=== PATIENT | male | born 1955 | race Caucasian/White ===

== ENCOUNTER 2023-02-04 22:47 | Observation (INO) ==
--- NOTE | 2023-02-04 23:45 | Emergency Department Note ---
Impression & Plan Acute alteration in mental status Admit to the [facility] ED Provider Note NAME: TERRENCE SANTANA AGE: 67 SEX: M ARRIVES VIA: Walk-In INFORMANT: Patient and caregiver ED PROVIDER(S): Eileen Chawla DO CHIEF COMPLAINT: Altered mental status PLAN: Disposition: Admit to the [facility] Condition: Fair MEDICAL DECISION MAKING: This is a 67-year-old male patient who presents to the emergency department with increased confusion and what the caregiver described as acting "fidgety." Patient had been seen at [facility] for similar presentation admitted there just 2 days ago. He was discharged back to his correction and told to stop taking his trazodone and quetiapine. Caregivers were concerned because his altered mental status seems to have worsened and now he is more restless and has increased tongue protrusion. Laboratory studies here reveal anemia, decreased white blood cell count and trace ketones. Patient was bolused with IV normal saline solution here in the ER for what appeared to be some clinical dehydration. He was also given a dose of IV Ativan which did not seem to help with his restlessness. [facility] and they will evaluate for his altered mental status and admission. Triage Nursing notes reviewed and agree with them. Additional history obtained from rehabilitation services aide who is at the bedside External medical records were reviewed from the correction Vital Signs: reviewed and unremarkable Differential diagnosis: Medication side effects, cognitive impairment, neuropsych results of TBI, intellectual disability ER treatment provided: Cardiac monitoring Twelve-lead EKG IV normal saline bolus IV Ativan Diagnostics interpreted by me: ECG: Normal sinus rhythm at a rate of [address] segment elevation or signs of ischemia. There is no ectopy. QTc is 383 ms. Cardiac Monitoring: Normal sinus rhythm at a rate of 69. Laboratory studies: See below HPI: 67/M arrives for evaluation of altered mental status. Most of the history is obtained from the rehabilitation services aide who is at the bedside. She states that the patient appears to have a bit of an altered mental status over the past week. She describes him as increasingly"fidgety." She also describes increased confusion. They thought he may have a urinary tract infection and obtained urine specimen last week but this was negative for UTI. The patient was seen at [facility] 2 days ago and admitted overnight. Upon discharge from there, they did discontinued his trazodone and quetiapine. PAST MEDICAL HISTORY:Intellectual disability; traumatic brain injury; neuroleptic malignant syndrome; GERD; hypertension; asthma; cataracts; constipation SOCIAL HISTORY:Patient lives in a correction HOME MEDICATIONS:See Below ALLERGIES:See Below VITALS:See Below PHYSICAL EXAMINATION: HEENT: Head - normocephalic and atraumatic. Pupils are equal, round, and reactive to light. Extraocular eye muscles are intact, and sclera are anicteric. Nose - moist nasal mucosa without discharge. Mouth-dry buccal mucosa. Oropharynx is nonerythematous and there is no tonsillar exudate or edema noted. Neck: Supple; no nuchal rigidity or cervical lymphadenopathy Heart: Regular rate and rhythm. There is a normal S1 and S2 with no murmurs, clicks, or gallops appreciated. Lungs: Clear to auscultation bilaterally with no wheezes, rales, or rhonchi. Abdomen: Soft, completely nontender, nondistended, with good bowel sounds. There are no palpable pulsatile masses or hepatosplenomegaly. There is no guarding, rigidity, or rebound noted. Extremities: No evidence of cyanosis, clubbing, or edema. There are easily palpable peripheral pulses. Skin: warm and dry with good turgor and no rashes. Neuro: The patient appears restless and has lipsmacking and tongue protrusion. He is moving all 4 extremities. Normal muscle strength in all 4 extremities. He has equal pedal push and pull and equal environmental health manager strengths. He has normal finger-nose. ED COURSE: Times/Reassessments: 2300: Patient was evaluated in room A-9. A complete history and physical was performed. An order was placed for continuous cardiac monitoring. Patient was in a normal sinus rhythm at a rate of 69. A twelve- lead EKG was obtained as described above. Bolused with a liter of normal saline. He was given a dose of IV Ativan. 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, with other behavioral or psychological disturbance Psychosis Social History Smoking Status: Unknown if ever smoked Second Hand Exposure: No; Do You Dip or Chew Tobacco: No; Tobacco Cessation Education Requested by Patient: No Hx Alcohol Use: No Hx Substance Use: No Preferred Language: Slovenian Communication Ability: Impaired Disc Pad Grinder Required: No Beliefs That Will Affect Care: None Current Living Situation: Residential and Personal Care Facility Other Information That Helps Us Care for You: No Feels Safe at Home: Yes Safety Concerns: Feels Safe At This Time Assistive Devices: Glasses Allergies Allergies Allergy/AdvReac Type Severity Reaction Status Date / Time No Known Allergies Allergy Unverified 02/04/23 23:56 Home Meds Home Medications Medication Instructions Recorded Confirmed aspirin 81 mg chewable tablet 81 mg PO DAILY 02/04/23 02/05/23 atorvastatin 40 mg tablet 40 mg PO DAILY 02/04/23 02/05/23 carvedilol 6.25 mg tablet 6.25 mg PO BID 02/04/23 02/05/23 famotidine 20 mg tablet 40 mg DAILY 02/04/23 02/05/23 methylcellulose (laxative) 500 mg 500 mg PO BID 02/04/23 02/05/23 tablet (Citrucel) ascorbic acid (vitamin C) 500 mg 500 mg PO DAILY 02/05/23 02/05/23 chewable tablet (Vitamin C) ketoconazole 2 % shampoo 2 applic topical 2XWK 02/05/23 02/05/23 lamotrigine 200 mg tablet 200 mg BID 02/05/23 02/05/23 levothyroxine 50 mcg tablet 50 mcg DAILY 02/05/23 02/05/23 lorazepam 0.5 mg tablet 0.5 mg DAILY 02/05/23 02/05/23 losartan 100 mg tablet 100 mg DAILY 02/05/23 02/05/23 quetiapine 100 mg tablet 100 mg HS 02/05/23 02/05/23 quetiapine 50 mg tablet 50 mg DAILY 02/05/23 02/05/23 sertraline 100 mg tablet 200 mg DAILY 02/05/23 02/05/23 terazosin 2 mg capsule 2 mg HS 02/05/23 02/05/23 trazodone 150 mg tablet 150 mg HS 02/05/23 02/05/23 Previous Rx's Medication Instructions Recorded melatonin 3 mg tablet 3 mg PO HS PRN sleep #30 tabs 02/06/23 Results & Data (ED) Vital Signs Vital Signs - 24 hr 02/04/23 22:49 02/04/23 23:04 02/04/23 23:00 Temperature 37.2 C 37.9 C H Temperature Source Temporal Artery Scan Oral Pulse Rate 77 70 Pulse Rate [Apical] 68 Pulse Rhythm [Apical] Pulse Strength [Apical] Respiratory Rate 16 22 Respiratory Effort / Characteristics Respiratory Depth Respiratory Pattern Blood Pressure 102/65 Blood Pressure [Left Arm] Blood Pressure Mean 77 Blood Pressure Mean [Left Arm] Blood Pressure Position [Left Arm] Pulse Oximetry 94 95 Oxygen Delivery Method Room Air Room Air Sepsis Recent Fever Within 48 Hours No Sepsis New/Unexplained Change in Mental Status N/A Sepsis Action Taken by Nursing No Action Required 02/04/23 23:24 02/04/23 23:30 02/05/23 00:00 Temperature Temperature Source Pulse Rate 61 60 Pulse Rate [Apical] Pulse Rhythm [Apical] Pulse Strength [Apical] Respiratory Rate 22 20 Respiratory Effort / Characteristics Respiratory Depth Respiratory Pattern Blood Pressure 136/62 127/68 Blood Pressure [Left Arm] Blood Pressure Mean 86 87 Blood Pressure Mean [Left Arm] Blood Pressure Position [Left Arm] Pulse Oximetry 95 96 Oxygen Delivery Method Room Air Room Air Room Air Sepsis Recent Fever Within 48 Hours Sepsis New/Unexplained Change in Mental Status Sepsis Action Taken by Nursing 02/05/23 00:15 02/05/23 01:21 02/05/23 00:30 Temperature 37.8 C H Temperature Source Axillary Pulse Rate 59 L 63 Pulse Rate [Apical] 70 Pulse Rhythm [Apical] Regular Pulse Strength [Apical] Normal Respiratory Rate 20 17 25 H Respiratory Effort / Characteristics Non-Labored Spontaneous Respiratory Depth Normal Respiratory Pattern Regular Blood Pressure 148/63 H 138/67 Blood Pressure [Left Arm] 163/92 H Blood Pressure Mean 91 90 Blood Pressure Mean [Left Arm] 115 Blood Pressure Position [Left Arm] Lying Pulse Oximetry 95 93 Oxygen Delivery Method Room Air Room Air Sepsis Recent Fever Within 48 Hours Sepsis New/Unexplained Change in Mental Status Sepsis Action Taken by Nursing 02/05/23 01:30 02/05/23 00:45 02/05/23 02:57 Temperature Temperature Source Pulse Rate 68 60 68 Pulse Rate [Apical] Pulse Rhythm [Apical] Pulse Strength [Apical] Respiratory Rate 21 20 Respiratory Effort / Characteristics Respiratory Depth Respiratory Pattern Blood Pressure 106/82 132/81 Blood Pressure [Left Arm] Blood Pressure Mean 90 98 Blood Pressure Mean [Left Arm] Blood Pressure Position [Left Arm] Pulse Oximetry 92 95 Oxygen Delivery Method Room Air Room Air Sepsis Recent Fever Within 48 Hours Sepsis New/Unexplained Change in Mental Status Sepsis Action Taken by Nursing 02/05/23 02:30 02/05/23 02:45 02/05/23 03:00 Temperature Temperature Source Pulse Rate 68 64 67 Pulse Rate [Apical] Pulse Rhythm [Apical] Pulse Strength [Apical] Respiratory Rate Respiratory Effort / Characteristics Respiratory Depth Respiratory Pattern Blood Pressure 134/75 130/102 H 137/70 Blood Pressure [Left Arm] Blood Pressure Mean 94 111 92 Blood Pressure Mean [Left Arm] Blood Pressure Position [Left Arm] Pulse Oximetry 95 94 95 Oxygen Delivery Method Room Air Room Air Room Air Sepsis Recent Fever Within 48 Hours Sepsis New/Unexplained Change in Mental Status Sepsis Action Taken by Nursing 02/05/23 03:15 Temperature Temperature Source Pulse Rate 69 Pulse Rate [Apical] Pulse Rhythm [Apical] Pulse Strength [Apical] Respiratory Rate Respiratory Effort / Characteristics Respiratory Depth Respiratory Pattern Blood Pressure 124/74 Blood Pressure [Left Arm] Blood Pressure Mean 90 Blood Pressure Mean [Left Arm] Blood Pressure Position [Left Arm] Pulse Oximetry 94 Oxygen Delivery Method Room Air Sepsis Recent Fever Within 48 Hours Sepsis New/Unexplained Change in Mental Status Sepsis Action Taken by Nursing Laboratory Data 02/04/23 23:10 02/04/23 23:10 Lab Results 02/04/23 02/04/23 02/04/23 Range/Units 23:10 23:10 23:10 WBC 3.98 L (4.8-10.8) K/ul RBC 4.38 L (4.70-6.10) M/uL Hgb 12.2 L (14.0-18.0) g/dl Hct 36.5 L (42.0-52.0) % MCV 83.3 (80.0-100.0) fL MCH 27.9 (25.0-34.0) pg MCHC 33.4 (32.0-36.0) g/dL RDW Std Deviation 43.8 (36.4-46.3) fL RDW Coeff of Zeyad 14.4 (11.5-14.5) % Plt Count 221 (130-400) K/uL MPV 10.0 (9.4-12.4) fL Immature Gran % (Auto) 0.0 % Neut % (Auto) 64.0 % Lymph % (Auto) 18.1 % [place] % (Auto) 13.8 % Eos % (Auto) 3.8 % Baso % (Auto) 0.3 % Neut # (Auto) 2.55 (1.40-6.50) K/uL Lymph # (Auto) 0.72 L (1.20-3.40) K/uL [place] # (Auto) 0.55 (0.11-0.59) K/uL Eos # (Auto) 0.15 (0.00-0.50) K/uL Baso # (Auto) 0.01 (0.00-0.20) K/uL Immature Gran # (Auto) 0.00 L (0.01-0.20) K/uL Sodium 137 (136-145) mmol/L Potassium 3.9 (3.5-5.1) mmol/L Chloride 107 (98-107) mmol/L Carbon Dioxide 26 (21-32) mmol/L Anion Gap 4 (3-11) BUN 22 (6-23) mg/dl Creatinine 1.07 (0.6-1.4) mg/dl Est Cr Clr Drug Dosing Not Reportable Est GFR ( Amer) 84.0 ml/min Est GFR (Non-Af Amer) 72.5 ml/min BUN/Creatinine Ratio 20.6 H (10-20) Glucose 94 (70-99(Fasting)) mg/dl Lactate (0.4-2.0) mmol/L Calcium 9.1 (8.6-10.3) mg/dl Magnesium 1.8 (1.7-2.4) mg/dl Total Bilirubin 0.4 (0.2-1.0) mg/dl Direct Bilirubin 0.1 (0-0.2) mg/dl AST 31 (13-39) U/L ALT 18 (7-52) U/L Alkaline Phosphatase 46 (34-104) U/L Troponin I High Sens 8.1 (0-20) pg/ml Total Protein 6.6 (6.0-8.3) gm/dl Albumin 3.8 (3.4-5.0) gm/dl Procalcitonin < 0.05 (0-0.5) ng/ml TSH (0.300-4.500) uIu/ml Urine Color Urine Appearance (Clear) Urine pH (4.5-7.5) Ur Specific [place] (1.000-1.030) Urine Protein (Negative) Urine Glucose (UA) (Negative) Urine Ketones (Negative) Urine Blood (Negative) Urine Nitrite (Negative) Urine Bilirubin (Negative) Urine Urobilinogen (Negative) Ur Leukocyte Esterase (Negative) Ethyl Alcohol mg/dL (<10.0) mg/dl Lyme Disease IgG Ab (Negative) Lyme Disease IgM Ab (Negative) 02/04/23 02/04/23 02/04/23 Range/Units 23:10 23:10 23:10 WBC (4.8-10.8) K/ul RBC (4.70-6.10) M/uL Hgb (14.0-18.0) g/dl Hct (42.0-52.0) % MCV (80.0-100.0) fL MCH (25.0-34.0) pg MCHC (32.0-36.0) g/dL RDW Std Deviation (36.4-46.3) fL RDW Coeff of Zeyad (11.5-14.5) % Plt Count (130-400) K/uL MPV (9.4-12.4) fL Immature Gran % (Auto) % Neut % (Auto) % Lymph % (Auto) % [place] % (Auto) % Eos % (Auto) % Baso % (Auto) % Neut # (Auto) (1.40-6.50) K/uL Lymph # (Auto) (1.20-3.40) K/uL [place] # (Auto) (0.11-0.59) K/uL Eos # (Auto) (0.00-0.50) K/uL Baso # (Auto) (0.00-0.20) K/uL Immature Gran # (Auto) (0.01-0.20) K/uL Sodium (136-145) mmol/L Potassium (3.5-5.1) mmol/L Chloride (98-107) mmol/L Carbon Dioxide (21-32) mmol/L Anion Gap (3-11) BUN (6-23) mg/dl Creatinine (0.6-1.4) mg/dl Est Cr Clr Drug Dosing Est GFR ( Amer) ml/min Est GFR (Non-Af Amer) ml/min BUN/Creatinine Ratio (10-20) Glucose (70-99(Fasting)) mg/dl Lactate (0.4-2.0) mmol/L Calcium (8.6-10.3) mg/dl Magnesium (1.7-2.4) mg/dl Total Bilirubin (0.2-1.0) mg/dl Direct Bilirubin (0-0.2) mg/dl AST (13-39) U/L ALT (7-52) U/L Alkaline Phosphatase (34-104) U/L Troponin I High Sens (0-20) pg/ml Total Protein (6.0-8.3) gm/dl Albumin (3.4-5.0) gm/dl Procalcitonin (0-0.5) ng/ml TSH 4.266 (0.300-4.500) uIu/ml Urine Color Dark Yellow Urine Appearance Clear (Clear) Urine pH 5.5 (4.5-7.5) Ur Specific [place] 1.025 (1.000-1.030) Urine Protein Negative (Negative) Urine Glucose (UA) Negative (Negative) Urine Ketones Trace H (Negative) Urine Blood Negative (Negative) Urine Nitrite Negative (Negative) Urine Bilirubin Negative (Negative) Urine Urobilinogen Negative (Negative) Ur Leukocyte Esterase Negative (Negative) Ethyl Alcohol mg/dL (<10.0) mg/dl Lyme Disease IgG Ab Negative (Negative) Lyme Disease IgM Ab Negative (Negative) 02/04/23 02/04/23 Range/Units 23:47 23:47 WBC (4.8-10.8) K/ul RBC (4.70-6.10) M/uL Hgb (14.0-18.0) g/dl Hct (42.0-52.0) % MCV (80.0-100.0) fL MCH (25.0-34.0) pg MCHC (32.0-36.0) g/dL RDW Std Deviation (36.4-46.3) fL RDW Coeff of Zeyad (11.5-14.5) % Plt Count (130-400) K/uL MPV (9.4-12.4) fL Immature Gran % (Auto) % Neut % (Auto) % Lymph % (Auto) % [place] % (Auto) % Eos % (Auto) % Baso % (Auto) % Neut # (Auto) (1.40-6.50) K/uL Lymph # (Auto) (1.20-3.40) K/uL [place] # (Auto) (0.11-0.59) K/uL Eos # (Auto) (0.00-0.50) K/uL Baso # (Auto) (0.00-0.20) K/uL Immature Gran # (Auto) (0.01-0.20) K/uL Sodium (136-145) mmol/L Potassium (3.5-5.1) mmol/L Chloride (98-107) mmol/L Carbon Dioxide (21-32) mmol/L Anion Gap (3-11) BUN (6-23) mg/dl Creatinine (0.6-1.4) mg/dl Est Cr Clr Drug Dosing Est GFR ( Amer) ml/min Est GFR (Non-Af Amer) ml/min BUN/Creatinine Ratio (10-20) Glucose (70-99(Fasting)) mg/dl Lactate 0.8 (0.4-2.0) mmol/L Calcium (8.6-10.3) mg/dl Magnesium (1.7-2.4) mg/dl Total Bilirubin (0.2-1.0) mg/dl Direct Bilirubin (0-0.2) mg/dl AST (13-39) U/L ALT (7-52) U/L Alkaline Phosphatase (34-104) U/L Troponin I High Sens (0-20) pg/ml Total Protein (6.0-8.3) gm/dl Albumin (3.4-5.0) gm/dl Procalcitonin (0-0.5) ng/ml TSH (0.300-4.500) uIu/ml Urine Color Urine Appearance (Clear) Urine pH (4.5-7.5) Ur Specific [place] (1.000-1.030) Urine Protein (Negative) Urine Glucose (UA) (Negative) Urine Ketones (Negative) Urine Blood (Negative) Urine Nitrite (Negative) Urine Bilirubin (Negative) Urine Urobilinogen (Negative) Ur Leukocyte Esterase (Negative) Ethyl Alcohol mg/dL < 10.0 (<10.0) mg/dl Lyme Disease IgG Ab (Negative) Lyme Disease IgM Ab (Negative) Administered Medications Aspirin (Aspirin 81 Mg Ectab) 81 mg PO DAILY GIOVANNI Stop: 03/07/23 08:59 Last Admin: 02/06/23 09:58 Dose: 81 mg Documented By: Admin: 02/05/23 09:08 Dose: 81 mg Documented By: ES Atorvastatin Calcium (Atorvastatin 40 Mg Tab) 40 mg PO DAILY GIOVANNI Stop: 03/07/23 08:59 Last Admin: 02/06/23 09:58 Dose: 40 mg Documented By: Admin: 02/05/23 09:08 Dose: 40 mg Documented By: ES Carvedilol (Carvedilol 6.25 Mg Tab) 6.25 mg PO BID GIOVANNI Stop: 03/07/23 08:59 Last Admin: 02/06/23 10:01 Dose: Not Given Documented By: Admin: 02/05/23 20:09 Dose: Not Given Documented By: Admin: 02/05/23 09:09 Dose: 6.25 mg Documented By: ES Enoxaparin Sodium (Enoxaparin Inj 40 Mg/0.4 Ml Syr) 40 mg SQ QAM GIOVANNI Stop: 03/07/23 08:59 Last Admin: 02/06/23 10:01 Dose: 40 mg Documented By: Admin: 02/05/23 09:08 Dose: 40 mg Documented By: ES Famotidine (Famotidine 40 Mg Tablet) 40 mg PO DAILY GIOVANNI Stop: 03/07/23 08:59 Last Admin: 02/06/23 09:59 Dose: 40 mg Documented By: Admin: 02/05/23 09:09 Dose: 40 mg Documented By: ES Lamotrigine (Lamotrigine 100 Mg Tab) 200 mg PO BID GIOVANNI Stop: 03/07/23 08:59 Last Admin: 02/06/23 09:59 Dose: 200 mg Documented By: Admin: 02/05/23 20:15 Dose: 200 mg Documented By: Admin: 02/05/23 09:09 Dose: 200 mg Documented By: ES Levothyroxine Sodium (Levothyroxine Sodium 50 Mcg Tablet) 50 mcg PO DAILYBB GIOVANNI Stop: 03/07/23 06:29 Last Admin: 02/06/23 06:07 Dose: 50 mcg Documented By: Admin: 02/05/23 09:08 Dose: 50 mcg Documented By: JESSICA Lorazepam (Lorazepam 0.5 Mg Tab) 0.5 mg PO DAILY GIOVANNI Stop: 03/07/23 08:59 Last Admin: 02/06/23 09:58 Dose: 0.5 mg Documented By: Admin: 02/05/23 09:09 Dose: 0.5 mg Documented By: JESSICA Losartan Potassium (Losartan Potassium 50 Mg Tab) 100 mg PO DAILY GIOVANNI Stop: 03/07/23 08:59 Last Admin: 02/06/23 09:59 Dose: 100 mg Documented By: Admin: 02/05/23 09:09 Dose: 100 mg Documented By: JESSICA Miscellaneous (Citrucel~Order Awaiting Action) 1 each N/A QS GIVOANNI Stop: 03/07/23 07:59 Last Admin: 02/06/23 10:00 Dose: Not Given Documented By: Admin: 02/05/23 23:44 Dose: Not Given Documented By: Admin: 02/05/23 09:09 Dose: 1 each Documented By: Admin: 02/05/23 09:09 Dose: 1 each Documented By: JESSICA Terazosin HCl (Terazosin Hcl 1 Mg Cap) 2 mg PO HS GIOVANNI Stop: 03/07/23 20:59 Last Admin: 02/05/23 20:08 Dose: 2 mg Documented By: RENETTA Discontinued Medications Sodium Chloride (Nss) 500 mls @ 999 mls/hr IV .Q31M ONE Stop: 02/05/23 02:02 Last Infusion: 02/05/23 02:59 Dose: 0 mls/hr Documented By: Admin: 02/05/23 02:16 Dose: 999 mls/hr Documented By: LATRICE Acetaminophen (Ofirmev) 1,000 mg in 100 mls @ 400 mls/hr IV NOW STA Stop: 02/05/23 03:41 Last Infusion: 02/05/23 04:41 Dose: 0 mls/hr Documented By: Admin: 02/05/23 04:26 Dose: 400 mls/hr Documented By: LATRICE Lactated Ringer's (Lr) 1,000 mls @ 60 mls/hr IV .[id number] STA Stop: 02/05/23 20:57 Last Infusion: 02/05/23 20:57 Dose: 0 mls/hr Documented By: Admin: 02/05/23 06:26 Dose: 60 mls/hr Documented By: LATRICE Lorazepam (Lorazepam 2 Mg/1 Ml Vial) 0.5 mg IV NOW STA Stop: 02/05/23 01:33 Last Admin: 02/05/23 02:13 Dose: 0.5 mg Documented By: LATRICE Melatonin (Melatonin 3 Mg Tab) 3 mg PO NOW STA Stop: 02/05/23 03:59 Last Admin: 02/05/23 04:25 Dose: 3 mg Documented By: LATRICE Imaging Data Radiologist's Impression: Head CT 02/05/23 04:02 CT OF THE HEAD WITHOUT CONTRAST CLINICAL HISTORY: Altered mental status. COMPARISON STUDY: No previous studies for comparison. CT DOSE: 1406.31 mGy.cm TECHNIQUE: Helical axial images of the head were obtained without IV contrast. Automated exposure control was utilized for the study. A dose lowering technique was utilized adhering to the principles of ALARA. FINDINGS: No acute intracranial hemorrhage, midline shift or mass effect is present. The ventricular system is unremarkable. The basal cisterns are patent. No extra-axial collections are present. There are no findings to suggest acute dural sinus thrombosis or acute territorial infarct. No significant calvarial abnormalities are present. Visualized portions of the sinuses and mastoid air cells are clear. IMPRESSION: No acute intracranial findings. ACT 112: Negative or not required by law. Electronically signed by: Ian Harris M.D. 02/05/2023 6:28 AM Discharge Plan Visit Data Chief Complaint: Fever Stated Complaint: TIA SYMPTOMS,NOT FUNCTIONING ED Provider: Eileen Chawla Discharge Problem: Acute alteration in mental status Patient Disposition: Admitted As Inpatient Discharge Instructions Interventions: ED Discharge Assessment Last Done: 02/05/23 06:00
[2023-02-04 23:53] LABS: Appearance Urine Clear (Clear); Bilirubin Urine Negative (Negative); Blood Urine Negative (Negative); Color Urine Dark Yellow; Glucose Urine UA Negative (Negative); Ketones Urine Trace (Negative); Leukocyte Esterase Urine Negative (Negative); Nitrite Urine Negative (Negative); Protein Urine Negative (Negative); Specific Gravity Urine 1.025 (1.000-1.030); Urobilinogen Urine Negative (Negative); pH Urine 5.5 (4.5-7.5)
[2023-02-04 23:54] LABS: Basophils # (auto) 0.01 K/uL (0.00-0.20); Basophils % (auto) 0.3 %; Eosinophils # (auto) 0.15 K/uL (0.00-0.50); Eosinophils % (auto) 3.8 %; Hematocrit (blood only) 36.5 % (42.0-52.0); Hemoglobin 12.2 g/dl (14.0-18.0); Lymphocytes # (auto) 0.72 K/uL (1.20-3.40); Lymphocytes % (auto) 18.1 %; Mean Corpuscular Hemoglobin 27.9 pg (25.0-34.0); Mean Corpuscular Hgb Conc 33.4 g/dL (32.0-36.0); Mean Corpuscular Volume 83.3 fL (80.0-100.0); Monocytes # (auto) 0.55 K/uL (0.11-0.59); Monocytes % (auto) 13.8 %; Neutrophils # (auto) 2.55 K/uL (1.40-6.50); Platelet Count 221 K/uL (130-400); RDW Coefficient of Variation 14.4 % (11.5-14.5); RDW Standard Deviation 43.8 fL (36.4-46.3); Red Blood Count 4.38 M/uL (4.70-6.10); White Blood Count 3.98 K/ul (4.8-10.8)
[2023-02-05 00:03] LABS: Alanine Aminotransferase 18 U/L (7-52); Albumin Level 3.8 gm/dl (3.4-5.0); Alkaline Phosphatase 46 U/L (34-104); Anion Gap 4 (3-11); Aspartate Aminotransferase 31 U/L (13-39); BUN Creatinine Ratio 20.6 (10-20); Bilirubin Direct 0.1 mg/dl (0-0.2); Bilirubin,Total 0.4 mg/dl (0.2-1.0); Blood Urea Nitrogen 22 mg/dl (6-23); Calcium 9.1 mg/dl (8.6-10.3); Carbon Dioxide 26 mmol/L (21-32); Chloride 107 mmol/L (98-107); Est GFR (Non-African American) 72.5 ml/min; Glucose 94 mg/dl (70-99(Fasting)); Magnesium 1.8 mg/dl (1.7-2.4); Potassium 3.9 mmol/L (3.5-5.1); Sodium 137 mmol/L (136-145); Total Protein 6.6 gm/dl (6.0-8.3)
[2023-02-05 00:08] LABS: Troponin I High Sensitivity 8.1 pg/ml (0-20)
[2023-02-05] MEDS ORDERED: SODIUM CHLORIDE 0.9% 500 ML IV ONE (01:32)
[2023-02-05] MEDS ORDERED: LORazepam 2 MG/1 ML VIAL IV STA (01:32)
[2023-02-05] MEDS ORDERED: ACETAMINOPHEN 1,000 MG/100 ML VIAL IV STA (03:27)
[2023-02-05] MEDS ORDERED: MELATONIN 3 MG TAB PO STA (03:58)
--- NOTE | 2023-02-05 03:59 | History & Physical Report ---
Date of Service February 05, 2023 Assessment & Plan (1) Acute alteration in mental status: Plan: Increased restlessness hx mood disorder, dementia/dyslexia/moderate mental retardation as per records. Trazodone and Seroquel recently held. Fever possibly from clinical dehydration given ketonuria rule out bacterial infection Anemia, leukopenia, unknown baseline, FOBT done at the ER was negative hypertension, stable hyperlipidemia on statin Rx hypothyroidism, euthyroid as of today's TSH Past tobacco abuse OBS Medical telemetry Retrieve recent [facility] ER visit records attempt to obtain additional history from patient's caregiver/family CS, hold off on antibiotics for now until definite bacterial source found, patient not septic IVF Anemia work-up DVT prophylaxis per Lovenox subcu Full code Attempted to contact following salesperson wigs's to obtain additional history and discuss plan of care. Ms. Reyna Zheng (caregiver), contact #[phone]. Mr. Simone Richmond (brother), contact #[phone]. No answer, left message for call back. Text document was generated using [employer] voice recognition software. It may contain grammatical or spelling errors. Kindly contact undersigned for clarification of any documentation item in [employer]. History of Present Illness Chief Complaint: Need help as per patient Fidgety and confused as per records Primary Care Provider: Frances Flood PA-C History obtained from patient and records. Limited history from patient secondary to cognitive impairment. Medical history significant for hypertension, hyperlipidemia, hypothyroidism, GERD, mood disorder, dementia/dyslexia/moderate mental retardation as per records, past tobacco abuse. Patient brought to [facility] [place] 2 days ago for evaluation of confusion. Patient caregiver told to hold trazodone and Seroquel. Since holding medication patient noted to be fidgety and confused. Not sleeping well. Patient denies headache, chest pain, SOB, abdominal pain. Patient brought to the ER for evaluation. Medical History as above Surgical History : Could not be obtained secondary to cognitive impairment Family History :Could not be obtained secondary to cognitive impairment Personal/Social history : Past tobacco abuse, lives with caregiver Allergies Allergy/AdvReac Type Severity Reaction Status Date / Time No Known Allergies Allergy Unverified 02/04/23 23:56 Home Medications Medication Instructions Recorded Confirmed Type aspirin 81 mg chewable tablet 81 mg PO DAILY 02/04/23 02/05/23 History atorvastatin 40 mg tablet 40 mg PO DAILY 02/04/23 02/05/23 History carvedilol 6.25 mg tablet 6.25 mg PO BID 02/04/23 02/05/23 History famotidine 20 mg tablet 40 mg DAILY 02/04/23 02/05/23 History methylcellulose (laxative) 500 mg 500 mg PO BID 02/04/23 02/05/23 History tablet (Citrucel) ascorbic acid (vitamin C) 500 mg 500 mg PO DAILY 02/05/23 02/05/23 History chewable tablet (Vitamin C) ketoconazole 2 % shampoo 2 applic topical 2XWK 02/05/23 02/05/23 History lamotrigine 200 mg tablet 200 mg BID 02/05/23 02/05/23 History levothyroxine 50 mcg tablet 50 mcg DAILY 02/05/23 02/05/23 History lorazepam 0.5 mg tablet 0.5 mg DAILY 02/05/23 02/05/23 History losartan 100 mg tablet 100 mg DAILY 02/05/23 02/05/23 History quetiapine 100 mg tablet 100 mg HS 02/05/23 02/05/23 History quetiapine 50 mg tablet 50 mg DAILY 02/05/23 02/05/23 History sertraline 100 mg tablet 200 mg DAILY 02/05/23 02/05/23 History terazosin 2 mg capsule 2 mg HS 02/05/23 02/05/23 History trazodone 150 mg tablet 150 mg HS 02/05/23 02/05/23 History Past Med/Surg History Medical History (Updated 02/05/23 @ 06:40 by Eileen Chawla DO) Bipolar disorder, unspecified Dementia Dyslexia Hiatal hernia with GERD Hyperlipemia Hypothyroidism Major neurocognitive disorder due to another medical condition, with other behavioral or psychological disturbance Psychosis Social History Smoking Status: Never smoker Preferred Language: Syrian Feels Safe at Home: Yes Review of Systems Review of Systems: Could not be obtained secondary to cognitive impairment Physical Exam Physical Exam: GENERAL: Pleasant, follows commands, somewhat restless, oriented to day, no respiratory distress SKIN: Normal color, warm HEENT: [place] palpebral conjunctivae, no ptosis, dry buccal mucosa NECK : Supple, no tenderness CHEST : CTA, no tenderness HEART : RRR, no obvious murmurs ABDOMEN: Some distention, nontender RECTAL : Intact sphincter, brown stool (FOBT negative) EXTREMITIES : No LE swelling/tenderness, no other conspicuous deformities noted NEUROLOGIC : Coherent, oriented to day, no facial asymmetry, gait and stance not assessed Results & Data Results & Data Vital Signs (Past 12 Hours) Vital Signs Temp Pulse Pulse Resp BP BP Pulse Ox 02/05/23 03:15 69 124/74 94 02/05/23 03:00 67 137/70 95 02/05/23 02:45 64 130/102 H 94 02/05/23 02:30 68 134/75 95 02/05/23 02:57 68 02/05/23 00:45 60 20 132/81 95 02/05/23 01:30 68 21 106/82 92 02/05/23 00:30 63 25 H 138/67 93 02/05/23 01:21 37.8 C H 70 17 163/92 H 02/05/23 00:15 59 L 20 148/63 H 95 02/05/23 00:00 60 20 127/68 96 02/04/23 23:30 61 22 136/62 95 02/04/23 23:24 02/04/23 23:00 70 02/04/23 23:04 37.9 C H 68 22 95 02/04/23 22:49 37.2 C 77 16 102/65 94 O2 Del Method 02/05/23 03:15 Room Air 02/05/23 03:00 Room Air 02/05/23 02:45 Room Air 02/05/23 02:30 Room Air 02/05/23 02:57 02/05/23 00:45 Room Air 02/05/23 01:30 Room Air 02/05/23 00:30 Room Air 02/05/23 01:21 02/05/23 00:15 Room Air 02/05/23 00:00 Room Air 02/04/23 23:30 Room Air 02/04/23 23:24 Room Air 02/04/23 23:00 02/04/23 23:04 Room Air 02/04/23 22:49 Room Air Laboratory Results Laboratory Results WBC 3.98 K/ul (4.8-10.8) L 02/04/23 23:10 RBC 4.38 M/uL (4.70-6.10) L 02/04/23 23:10 Hgb 12.2 g/dl (14.0-18.0) L 02/04/23 23:10 Hct 36.5 % (42.0-52.0) L 02/04/23 23:10 MCV 83.3 fL (80.0-100.0) 02/04/23 23:10 MCH 27.9 pg (25.0-34.0) 02/04/23 23:10 MCHC 33.4 g/dL (32.0-36.0) 02/04/23 23:10 RDW Std Deviation 43.8 fL (36.4-46.3) 02/04/23 23:10 RDW Coeff of Zeyad 14.4 % (11.5-14.5) 02/04/23 23:10 Plt Count 221 K/uL (130-400) 02/04/23 23:10 MPV 10.0 fL (9.4-12.4) 02/04/23 23:10 Immature Gran % (Auto) 0.0 % 02/04/23 23:10 Neut % (Auto) 64.0 % 02/04/23 23:10 Lymph % (Auto) 18.1 % 02/04/23 23:10 Josephine % (Auto) 13.8 % 02/04/23 23:10 Eos % (Auto) 3.8 % 02/04/23 23:10 Baso % (Auto) 0.3 % 02/04/23 23:10 Neut # (Auto) 2.55 K/uL (1.40-6.50) 02/04/23 23:10 Lymph # (Auto) 0.72 K/uL (1.20-3.40) L 02/04/23 23:10 Josephine # (Auto) 0.55 K/uL (0.11-0.59) 02/04/23 23:10 Eos # (Auto) 0.15 K/uL (0.00-0.50) 02/04/23 23:10 Baso # (Auto) 0.01 K/uL (0.00-0.20) 02/04/23 23:10 Immature Gran # (Auto) 0.00 K/uL (0.01-0.20) L 02/04/23 23:10 Sodium 137 mmol/L (136-145) 02/04/23 23:10 Potassium 3.9 mmol/L (3.5-5.1) 02/04/23 23:10 Chloride 107 mmol/L (98-107) 02/04/23 23:10 Carbon Dioxide 26 mmol/L (21-32) 02/04/23 23:10 Anion Gap 4 (3-11) 02/04/23 23:10 BUN 22 mg/dl (6-23) 02/04/23 23:10 Creatinine 1.07 mg/dl (0.6-1.4) 02/04/23 23:10 Est Cr Clr Drug Dosing Not Reportable 02/04/23 23:10 Est GFR ( Amer) 84.0 ml/min 02/04/23 23:10 Est GFR (Non-Af Amer) 72.5 ml/min 02/04/23 23:10 BUN/Creatinine Ratio 20.6 (10-20) H 02/04/23 23:10 Glucose 94 mg/dl (70-99(Fasting)) 02/04/23 23:10 Lactate 0.8 mmol/L (0.4-2.0) 02/04/23 23:47 Calcium 9.1 mg/dl (8.6-10.3) 02/04/23 23:10 Magnesium 1.8 mg/dl (1.7-2.4) 02/04/23 23:10 Total Bilirubin 0.4 mg/dl (0.2-1.0) 02/04/23 23:10 Direct Bilirubin 0.1 mg/dl (0-0.2) 02/04/23 23:10 AST 31 U/L (13-39) 02/04/23 23:10 ALT 18 U/L (7-52) 02/04/23 23:10 Alkaline Phosphatase 46 U/L (34-104) 02/04/23 23:10 Troponin I High Sens 8.1 pg/ml (0-20) 02/04/23 23:10 Total Protein 6.6 gm/dl (6.0-8.3) 02/04/23 23:10 Albumin 3.8 gm/dl (3.4-5.0) 02/04/23 23:10 Procalcitonin < 0.05 ng/ml (0-0.5) 02/04/23 23:10 Urine Color Dark Yellow 08/23/23 23:10 Urine Appearance Clear (Clear) 02/04/23 23:10 Urine pH 5.5 (4.5-7.5) 02/04/23 23:10 Ur Specific [place] 1.025 (1.000-1.030) 02/04/23 23:10 Urine Protein Negative (Negative) 02/04/23 23:10 Urine Glucose (UA) Negative (Negative) 02/04/23 23:10 Urine Ketones Trace (Negative) H 02/04/23 23:10 Urine Blood Negative (Negative) 02/04/23 23:10 Urine Nitrite Negative (Negative) 02/04/23 23:10 Urine Bilirubin Negative (Negative) 02/04/23 23:10 Urine Urobilinogen Negative (Negative) 02/04/23 23:10 Ur Leukocyte Esterase Negative (Negative) 02/04/23 23:10 Ethyl Alcohol mg/dL < 10.0 mg/dl (<10.0) 02/04/23 23:47 CT head: No acute intracranial findings. Diagnostic Findings Chest x-ray as per my interpretation cardiomegaly EKG as per my interpretation : Rate 65, NSR, normal axis, T wave flattening septal leads
[2023-02-05] MEDS ORDERED: MELATONIN 3 MG TAB PO PRN (04:08)
[2023-02-05] MEDS ORDERED: PROMETHAZINE HCL 6.25 MG in SODIUM CHLORIDE 0.9% 50 ML IV PRN (04:08)
[2023-02-05 04:11] LABS: Lyme Ab IgG w/WB Rflx Negative (Negative); Lyme Ab IgM w/WB Rflx Negative (Negative)
[2023-02-05] MEDS ORDERED: LACTATED RINGER'S 1,000 ML IV STA (04:18)
[2023-02-05] MEDS ORDERED: ACETAMINOPHEN 325 MG TAB PO PRN (05:59)
--- NOTE | 2023-02-05 06:31 | CT Scan Report ---
CT OF THE HEAD WITHOUT CONTRAST CLINICAL HISTORY: Altered mental status. COMPARISON STUDY: No previous studies for comparison. CT DOSE: 1406.31 mGy.cm TECHNIQUE: Helical axial images of the head were obtained without IV contrast. Automated exposure con trol was utilized for the study. A dose lowering technique was utilized adhering to the principles o f ALARA. FINDINGS: No acute intracranial hemorrhage, midline shift or mass effect is present. The ventricular system is unremarkable. The basal cisterns are patent. No extra-axial collections are present. There are no findings to suggest acute dural sinus thrombosis or acute territorial infarct. No significant calvarial abnormalities are present. Visualized portions of the sinuses and mastoid air cells are tiarra ar. IMPRESSION: No acute intracranial findings. ACT 112: Negative or not required by law. Electronically signed by: Ian Harris M.D. 02/05/2023 6:28 AM
--- NOTE | 2023-02-05 06:58 | XRay Report ---
XR chest 1V portable CLINICAL HISTORY: Sepsis COMPARISON STUDY: No previous studies for comparison. FINDINGS: Incidental note is made of an old healed left clavicular fracture. Patient is rotated. Ther e is no pneumothorax or pleural effusion. Note is made of mild cardiomegaly without evidence for pulm onary edema. No consolidation is identified to suggest pneumonia. IMPRESSION: No acute cardiopulmonary findings. ACT 112: Negative or not required by law. Electronically signed by: Ian Harris M.D. 02/05/2023 6:56 AM
[2023-02-05 08:04] LABS: Basophils # (auto) 0.02 K/uL (0.00-0.20); Basophils % (auto) 0.5 %; Eosinophils % (auto) 2.6 %; Hematocrit (blood only) 33.7 % (42.0-52.0); Immature Granulocytes # (auto) 0.01 K/uL (0.01-0.20); Immature Granulocytes % (auto) 0.3 %; Lymphocytes # (auto) 0.92 K/uL (1.20-3.40); Lymphocytes % (auto) 23.7 %; Mean Corpuscular Hemoglobin 27.4 pg (25.0-34.0); Mean Corpuscular Hgb Conc 32.6 g/dL (32.0-36.0); Mean Corpuscular Volume 83.8 fL (80.0-100.0); Mean Platelet Volume 9.8 fL (9.4-12.4); Monocytes # (auto) 0.44 K/uL (0.11-0.59); Monocytes % (auto) 11.3 %; Neutrophils # (auto) 2.39 K/uL (1.40-6.50); Neutrophils % (auto) 61.6 %; Platelet Count 189 K/uL (130-400); RDW Standard Deviation 43.2 fL (36.4-46.3); Red Blood Count 4.02 M/uL (4.70-6.10); Reticulocyte % 1.4 % (0.5-2.0); Reticulocytes # 0.06 10^6/uL (0.02-0.10); White Blood Count 3.88 K/ul (4.8-10.8)
[2023-02-05 08:26] LABS: Anion Gap 2 (3-11); BUN Creatinine Ratio 19.4 (10-20); Blood Urea Nitrogen 18 mg/dl (6-23); Calcium 8.4 mg/dl (8.6-10.3); Carbon Dioxide 26 mmol/L (21-32); Chloride 109 mmol/L (98-107); Est GFR (African American) 99.5 ml/min; Est GFR (Non-African American) 85.8 ml/min; Glucose 93 mg/dl (70-99(Fasting)); Iron 27 mcg/dl (35-175); Potassium 3.8 mmol/L (3.5-5.1); Sodium 137 mmol/L (136-145); Transferrin 195 mg/dl (200-360)
[2023-02-05 08:46] LABS: Ferritin 60.2 ng/ml (8-388)
[2023-02-05 08:51] LABS: Folate (Folic Acid),Ser orPlas > 22.30 ng/ml (>5.38)
[2023-02-05 08:52] LABS: Vitamin B12 865 pg/ml (180-914)
[2023-02-05] MEDS: ENOXAPARIN INJ 40 MG/0.4 ML SYR SQ SCH (09:08)
[2023-02-05] MEDS: ASPIRIN 81 MG ECTAB PO SCH (09:08)
[2023-02-05] MEDS: LEVOTHYROXINE SODIUM 50 MCG TABLET PO SCH (09:08)
[2023-02-05] MEDS: ATORVASTATIN 40 MG TAB PO SCH (09:08)
[2023-02-05] MEDS: LOSARTAN POTASSIUM 50 MG TAB PO SCH (09:09)
[2023-02-05] MEDS: FAMOTIDINE 40 MG TABLET PO SCH (09:09)
[2023-02-05] MEDS: LORazepam 0.5 MG TAB PO SCH (09:09)
[2023-02-05] MEDS: lamoTRIgine 100 MG TAB PO SCH ×2 (09:09→20:15)
[2023-02-05] MEDS: carvediloL 6.25 MG TAB PO SCH ×2 (09:09→20:09)
--- NOTE | 2023-02-05 11:40 | Psychiatric Consultation ---
Date of Consultation February 05, 2023 Impression / Recommendations Impression Diagnostically no evidence for any current mood symptoms such as depression or teddy, no evidence for psychosis nor anxiety and can accurately recall some recent events including recent admission at [facility] and information about his jail. What is less clear, not knowing his baseline, is to what degree his confusion about the month/year is related to his intellectual disability versus neurocognitive disorder versus potential acute delirium/confusion. Currently doesn't present with any other signs of delirium, suspect his lack of orientation is more likely due to intellectual disability. No current signs of tardive dyskinesia observed on exam but given reports of concern for this at [facility] seems appropriate to continue to hold seroquel. Sertraline and trazodone could be restarted but seems like best option may be for his outpatient psychiatrist to make this determination at their next appointment given his current mood stability and report of stable sleep. (1) Acute alteration in mental status: Plan -Would not make any psychiatric medication changes at this time, agree with continuing lamictal 200mg BID -Should see his outpatient psychiatrist after discharge Psych History Identifying Data 67 yo man who lives in a jail in [place] with a history of intellectual disability, unspecified mood disorder, possible dementia admitted medically for recent worsening of confusion. Psychiatry consulted for question of mood disorder and polypharmacy. Chief Complaint "I love halloween". History of Present Illness Todd was recently seen at [facility] and admitted medically on 02/02/2023 for worsening confusion and his psychiatric medications of seroquel, trazodone and sertraline were stopped due to concern for possible tardive dyskinesia and possible contribution to confusion. Since then he has remained confused at times so was brought to [facility] by his caregiver Reyna for further evaluation. Thus far medical workup has been non-revealing. He has been continued on lamictal 200mg BID, appears for mood purposes as he denies any history of seizures. Meeting him this morning he is oriented to the hospital and city. Thinks the mo nth is March and the year is April. Speaks of his love of halloween which he says is approaching soon and his Tera character dolls at home. Likes his jail, which he describes accurately, and the men he lives with. Can provide Reyna's name as his primary support. States his mood has been "fine", sleep has been "alright" and appetite is good. Enjoying watching a program on TV. Denies SI and HI. Denies any psychiatric hospitalizations, nor hx of suicide attempts. Sees Dr. Bartlett for psychiatry in [place]. No history of behavioral issues, has apparently been stable on his psychiatric medications for many years. Allergies Allergy/AdvReac Type Severity Reaction Status Date / Time No Known Allergies Allergy Unverified 02/04/23 23:56 Home Medications Medication Instructions Recorded Confirmed Type aspirin 81 mg chewable tablet 81 mg PO DAILY 02/04/23 02/05/23 History atorvastatin 40 mg tablet 40 mg PO DAILY 02/04/23 02/05/23 History carvedilol 6.25 mg tablet 6.25 mg PO BID 02/04/23 02/05/23 History famotidine 20 mg tablet 40 mg DAILY 02/04/23 02/05/23 History methylcellulose (laxative) 500 mg 500 mg PO BID 02/04/23 02/05/23 History tablet (Citrucel) ascorbic acid (vitamin C) 500 mg 500 mg PO DAILY 02/05/23 02/05/23 History chewable tablet (Vitamin C) ketoconazole 2 % shampoo 2 applic topical 2XWK 02/05/23 02/05/23 History lamotrigine 200 mg tablet 200 mg BID 02/05/23 02/05/23 History levothyroxine 50 mcg tablet 50 mcg DAILY 02/05/23 02/05/23 History lorazepam 0.5 mg tablet 0.5 mg DAILY 02/05/23 02/05/23 History losartan 100 mg tablet 100 mg DAILY 02/05/23 02/05/23 History quetiapine 100 mg tablet 100 mg HS 02/05/23 02/05/23 History quetiapine 50 mg tablet 50 mg DAILY 02/05/23 02/05/23 History sertraline 100 mg tablet 200 mg DAILY 02/05/23 02/05/23 History terazosin 2 mg capsule 2 mg HS 02/05/23 02/05/23 History trazodone 150 mg tablet 150 mg HS 02/05/23 02/05/23 History Patient History Medical History Bipolar disorder, unspecified Dementia Dyslexia Hiatal hernia with GERD Hyperlipemia Hypothyroidism Major neurocognitive disorder due to another medical condition, with other behavioral or psychological disturbance Psychosis Social History Smoking Status: Unknown if ever smoked Second Hand Exposure: No; Do You Dip or Chew Tobacco: No; Tobacco Cessation Education Requested by Patient: No Hx Alcohol Use: No Hx Substance Use: No Preferred Language: Indonesian Communication Ability: Effective Cardiology Rn Required: No Beliefs That Will Affect Care: None Current Living Situation: Jail and Personal Care Facility Other Information That Helps Us Care for You: No Feels Safe at Home: Yes Safety Concerns: Feels Safe At This Time Assistive Devices: None Physical Exam Psychiatric: Orientation: alert, oriented to person, oriented to place and cooperative; + not oriented to time Apperance: appropriately dressed and appropriately groomed Eye Contact: + fair eye contact Motor Behavior: no abnormal motor movements; n EPS Speech: + abnormal rate/rhythm/volume of speech (slight dysarthria) Affect: euthymic affect Mood: no depressed mood and no anxious mood Thought Process: goal directed thought process and + concrete thought process Thought Content: reality based without delusions Suicidal Thoughts: denies suicidal thoughts Homicidal Thoughts: denies homicidal thoughts Hallucinations: no auditory hallucinations and no visual hallucinations Cognition: recent memory grossly intact, remote memory grossly intact, attention grossly intact and language grossly intact Estimated Intelligence: + below average estimated intelligence Insight: + limited ins ight Judgment: + fair judgement Vital Signs (Past 24 Hours): Last Vital Signs Temp 36.5 C 02/05/23 09:59 Pulse 55 L 02/05/23 10:47 Resp 20 02/05/23 10:47 BP 103/55 L 02/05/23 10:47 Pulse Ox 94 02/05/23 10:47 O2 Del Method Room Air 02/05/23 10:47 Review of Systems All systems reviewed & are unremarkable except as noted in HPI & below Results & Data (PSY) Medications Administered Aspirin (Aspirin 81 Mg Ectab) 81 mg PO DAILY GIOVANNI Stop: 03/07/23 08:59 Last Admin: 02/05/23 09:08 Dose: 81 mg Documented By: JESSICA Atorvastatin Calcium (Atorvastatin 40 Mg Tab) 40 mg PO DAILY GIOVANNI Stop: 03/07/23 08:59 Last Admin: 02/05/23 09:08 Dose: 40 mg Documented By: JESSICA Carvedilol (Carvedilol 6.25 Mg Tab) 6.25 mg PO BID GIOVANNI Stop: 03/07/23 08:59 Last Admin: 02/05/23 09:09 Dose: 6.25 mg Documented By: JESSICA Enoxaparin Sodium (Enoxaparin Inj 40 Mg/0.4 Ml Syr) 40 mg SQ QAM GIOVANNI Stop: 03/07/23 08:59 Last Admin: 02/05/23 09:08 Dose: 40 mg Documented By: JESSICA Famotidine (Famotidine 40 Mg Tablet) 40 mg PO DAILY GIOVANNI Stop: 03/07/23 08:59 Last Admin: 02/05/23 09:09 Dose: 40 mg Documented By: JESSICA Lactated Ringer's (Lr) 1,000 mls @ 60 mls/hr IV .[id number] STA Stop: 02/05/23 20:57 Last Admin: 02/05/23 06:26 Dose: 60 mls/hr Documented By: LATRICE Lamotrigine (Lamotrigine 100 Mg Tab) 200 mg PO BID GIOVANNI Stop: 03/07/23 08:59 Last Admin: 02/05/23 09:09 Dose: 200 mg Documented By: JESSICA Levothyroxine Sodium (Levothyroxine Sodium 50 Mcg Tablet) 50 mcg PO DAILYBB [facility] Stop: 03/07/23 06:29 Last Admin: 02/05/23 09:08 Dose: 50 mcg Documented By: JESSICA Lorazepam (Lorazepam 0.5 Mg Tab) 0.5 mg PO DAILY GIOVANNI Stop: 03/07/23 08:59 Last Admin: 02/05/23 09:09 Dose: 0.5 mg Documented By: JESSICA Losartan Potassium (Losartan Potassium 50 Mg Tab) 100 mg PO DAILY GIOVANNI Stop: 03/07/23 08:59 Last Admin: 02/05/23 09:09 Dose: 100 mg Documented By: JESSICA Miscellaneous (Citrucel~Order Awaiting Action) 1 each N/A QS GIOVANNI Stop: 03/07/23 07:59 Last Admin: 02/05/23 09:09 Dose: 1 each Documented By: Admin: 02/05/23 09:09 Dose: 1 each Documented By: JESSICA Coding Level of Care Code 47879 IN/OBS CONSULT LVL 3,45M Diagnoses Acute alteration in mental status R41.82 Time Spent (min) 50
--- NOTE | 2023-02-05 16:20 | Hospitalist Progress Note ---
Date of Service February 05, 2023 Assessment & Plan (1) Acute alteration in mental status: Plan: Altered mental status/restlessness ? Polypharmacy -CT head:No acute intracranial findings. H/O Mood disorder, dementia/dyslexia/moderate mental retardation as per records. --Unknown baseline -Normal TSH, B12 Check Lamictal level Continue to hold trazodone, Seroquel for now Psychiatry consulted, Appreciate input Continue Lamictal, lorazepam for now Monitor Fever Dehydration No clear source of infection --CXR:No acute cardiopulmonary findings. --UA: not suggestive of UTI -- Blood cultures pending Afebrile today We will consider starting empiric antibiotics if needed Continue gentle IV fluids Anemia, leukopenia Unknown baseline, FOBT done in ED was negative No acute bleeding issues Serum iron, transferrin low Normal B12, folate levels Start on iron supplements Monitor Hypertension Continue Coreg, losartan Also on tamsulosin Hyperlipidemia Continue statin Hypothyroidism Normal TSH Continue levothyroxine DVT Px: Lovenox SQ Code Status Full code Manager Decision Support: Ms. Reyna Zheng (caregiver), contact #[phone]. Mr. Simone Richmond (brother), contact #[phone]. Admission and Anticipated Discharge Date Admission Date: February 05, 2023 Subjective Patient is seen and examined at bedside Offers no new complaints today Denies any chest pain, dyspnea, dizziness, nausea, abdominal pain Discussed with psychiatry today Tried to reach auto club safety program coordinator today Review of Systems Review of Systems: All systems reviewed & are unremarkable except as noted in Subjective Physical Exam Physical Exam: Physical Exam: Vitals signs as noted above General Appearance:Moderately built and nourished, no apparent distress Head: normocephalic, Atraumatic Eyes: normal inspection, EOMI Neck: supple, Trachea midline Respiratory/Chest: Normal breath sounds, CTA, No accessory muscle use Cardiovascular: S1, S2, No murmur Abdomen/GI:Soft, Non tender, Bowel sounds present Extremities/Musculoskeletal:normal inspection, no edema Neurologic/Psych:AAOX2, grossly no focal neurological deficits, +Slurred Speech, follows simple commands,+ cognitive impairment Skin: normal color, warm Results & Data Results & Data Vital Signs (Past 12 Hours) Vital Signs Temp Pulse Pulse Pulse Resp BP BP 02/05/23 15:32 57 L 02/05/23 15:30 37.3 C 56 L 18 138/65 02/05/23 10:47 55 L 20 103/55 L 02/05/23 09:59 36.5 C 57 L 20 105/53 L 02/05/23 09:56 105/53 L 02/05/23 09:56 56 L 20 02/05/23 08:20 57 L 02/05/23 05:59 36.8 C Pulse Ox O2 Del Method 02/05/23 15:32 02/05/23 15:30 95 Room Air 02/05/23 10:47 94 Room Air 02/05/23 09:59 94 Room Air 02/05/23 09:56 02/05/23 09:56 94 Room Air 02/05/23 08:20 02/05/23 05:59
--- NOTE | 2023-02-05 16:58 | Electrocardiogram Report ---
Test Reason : Blood Pressure : / mmHG Vent. Rate : 064 BPM Atrial Rate : 064 BPM P-R Int : 154 ms QRS Dur : 094 ms QT Int : 372 ms P-R-T Axes : 054 005 041 degrees QTc Int : 383 ms Normal sinus rhythm Normal ECG No previous ECGs available Confirmed by Erasmo Pagan ([id number]) on 02/05/2023 4:58:21 PM Referred By: REFERRED SELF Confirmed By:Erasmo Pagan
[2023-02-05] MEDS ORDERED: TERAZOSIN HCL 1 MG CAP PO SCH (21:00)
[2023-02-06] MEDS: LEVOTHYROXINE SODIUM 50 MCG TABLET PO SCH (06:07)
[2023-02-06 06:48] LABS: Hematocrit (blood only) 34.6 % (42.0-52.0); Hemoglobin 11.4 g/dl (14.0-18.0); Mean Corpuscular Hemoglobin 27.7 pg (25.0-34.0); Mean Corpuscular Hgb Conc 32.9 g/dL (32.0-36.0); Mean Platelet Volume 9.8 fL (9.4-12.4); Platelet Count 207 K/uL (130-400); RDW Coefficient of Variation 14.3 % (11.5-14.5); RDW Standard Deviation 43.8 fL (36.4-46.3); Red Blood Count 4.12 M/uL (4.70-6.10)
[2023-02-06 07:04] LABS: BUN Creatinine Ratio 17.6 (10-20); Calcium 8.8 mg/dl (8.6-10.3); Creatinine Clr Calc Pharmacy 85.2 ml/min; Est GFR (African American) 102.1 ml/min; Est GFR (Non-African American) 88.1 ml/min; Magnesium 1.7 mg/dl (1.7-2.4); Potassium 3.9 mmol/L (3.5-5.1)
[2023-02-06] MEDS: ASPIRIN 81 MG ECTAB PO SCH (09:58)
[2023-02-06] MEDS: LORazepam 0.5 MG TAB PO SCH (09:58)
[2023-02-06] MEDS: ATORVASTATIN 40 MG TAB PO SCH (09:58)
[2023-02-06] MEDS: LOSARTAN POTASSIUM 50 MG TAB PO SCH (09:59)
[2023-02-06] MEDS: lamoTRIgine 100 MG TAB PO SCH (09:59)
[2023-02-06] MEDS: FAMOTIDINE 40 MG TABLET PO SCH (09:59)
[2023-02-06] MEDS: ENOXAPARIN INJ 40 MG/0.4 ML SYR SQ SCH (10:01)
[2023-02-06] MEDS: carvediloL 6.25 MG TAB PO SCH (10:01)
--- NOTE | 2023-02-06 13:25 | Hospitalist Progress Note ---
Date of Service February 06, 2023 Assessment & Plan (1) Acute alteration in mental status: Plan: Altered mental status/restlessness ? Polypharmacy -CT head:No acute intracranial findings. H/O Mood disorder, dementia/dyslexia/moderate mental retardation as per records. --Unknown baseline -Normal TSH, B12 Lamictal level--pending Continue to hold trazodone, Seroquel for now Psychiatry consulted, Appreciate input Continue Lamictal, lorazepam Discussed with Dr. Gotti on 02/06/23: Recommends to continue to hold trazodone, Seroquel, Zoloft until follow-up with patient's primary psychiatrist as outpatient Plan [facility] today Fever Dehydration No clear source of infection --CXR:No acute cardiopulmonary findings. --UA: not suggestive of UTI -- Blood cultures: No growth to date Will consider starting empiric antibiotics if needed Received gentle IV fluids Anemia, leukopenia Unknown baseline, FOBT done in ED was negative No acute bleeding issues Serum iron, transferrin low Normal B12, folate levels Started on iron supplements Monitor Hypertension Continue Coreg, losartan Also on tamsulosin Hyperlipidemia Continue statin Hypothyroidism Normal TSH Continue levothyroxine DVT Px: Lovenox SQ Code Status Full code Environmental Planning Engineer: Ms. Reyna Zheng (caregiver), contact #[phone]. Mr. Simone Richmond (brother), contact #[phone]. Disposition alf Admission and Anticipated Discharge Date Admission Date: February 05, 2023 Subjective Patient is seen and examined at bedside States feeling well today Offers no complaints Prefers to be discharged home Denies any chest pain, dyspnea, dizziness, nausea, abdominal pain Tried to reach patient's brother: No answer, left voicemail Tried to reach patient's caregiver: No answer Discussed with psychiatry, Dr. Gotti today Review of Systems Review of Systems: All systems reviewed & are unremarkable except as noted in Subjective Physical Exam Physical Exam: Physical Exam: Vitals signs as noted above General Appearance:Moderately built and nourished, no apparent distress Head: normocephalic, Atraumatic Eyes: normal inspection, EOMI Neck: supple, Trachea midline Respiratory/Chest: Normal breath sounds, CTA, No accessory muscle use Cardiovascular: S1, S2, No murmur Abdomen/GI:Soft, Non tender, Bowel sounds present Extremities/Musculoskeletal:normal inspection, no edema Neurologic/Psych:AAOX2, grossly no focal neurological deficits, +Slurred Speech, follows simple commands,+ cognitive impairment Skin: normal color, warm Results & Data Results & Data Vital Signs (Past 12 Hours) Vital Signs Temp Pulse Pulse Resp BP Pulse Ox O2 Del Method 02/06/23 12:25 36.9 C Room Air 02/06/23 11:40 37.7 C H 94 H 16 153/64 H 94 Room Air 02/06/23 11:19 59 L 02/06/23 08:23 37.5 C 55 L 16 151/89 H 94 Room Air 02/06/23 02:55 37.1 C 53 L 18 130/73 93 Room Air Laboratory Results Short CBC 02/06/23 Range/Units 06:17 WBC 4.90 (4.8-10.8) K/ul Hgb 11.4 L (14.0-18.0) g/dl Hct 34.6 L (42.0-52.0) % Plt Count 207 (130-400) K/uL BMP 02/06/23 06:17 Sodium 136 Potassium 3.9 Chloride 106 Carbon Dioxide 25 BUN 16 Creatinine 0.91 Glucose 80 Calcium 8.8
--- NOTE | 2023-02-06 13:32 | Discharge Summary ---
Date of Service February 06, 2023 Admission HPI Per Admitting Provider History obtained from patient and records. Limited history from patient secondary to cognitive impairment. Medical history significant for hypertension, hyperlipidemia, hypothyroidism, GERD, mood disorder, dementia/dyslexia/moderate mental retardation as per records, past tobacco abuse. Patient brought to [place] 2 days ago for evaluation of confusion. Patient caregiver told to hold trazodone and Seroquel. Since holding medication patient noted to be fidgety and confused. Not sleeping well. Patient denies headache, chest pain, SOB, abdominal pain. Patient brought to the ER for evaluation. Medical History as above Surgical History : Could not be obtained secondary to cognitive impairment Family History :Could not be obtained secondary to cognitive impairment Personal/Social history : Past tobacco abuse, lives with caregiver Admission Exam Per Admitting Provider GENERAL: Pleasant, follows commands, somewhat restless, oriented to day, no respiratory distress SKIN: Normal color, warm HEENT: [place] palpebral conjunctivae, no ptosis, dry buccal mucosa NECK : Supple, no tenderness CHEST : CTA, no tenderness HEART : RRR, no obvious murmurs ABDOMEN: Some distention, nontender RECTAL : Intact sphincter, brown stool (FOBT negative) EXTREMITIES : No LE swelling/tenderness, no other conspicuous deformities noted NEUROLOGIC : Coherent, oriented to day, no facial asymmetry, gait and stance not assessed Principal Diagnosis Altered mental status/restlessness Suspected likely secondary to polypharmacy Iron deficiency anemia Discharge Data Allergies Allergy/AdvReac Type Severity Reaction Status Date / Time No Known Allergies Allergy Unverified 02/04/23 23:56 Consultations 02/05/23 02:56 ED Decision to Admit Stat 02/05/23 05:13 HIM [Consult Health Information Management] Stat 02/05/23 07:51 Consult Psychiatry Routine Procedures Performed Laboratory Results WBC 4.90 K/ul (4.8-10.8) 02/06/23 06:17 RBC 4.12 M/uL (4.70-6.10) L 02/06/23 06:17 Hgb 11.4 g/dl (14.0-18.0) L 02/06/23 06:17 Hct 34.6 % (42.0-52.0) L 02/06/23 06:17 MCV 84.0 fL (80.0-100.0) 02/06/23 06:17 MCH 27.7 pg (25.0-34.0) 02/06/23 06:17 MCHC 32.9 g/dL (32.0-36.0) 02/06/23 06:17 RDW Std Deviation 43.8 fL (36.4-46.3) 02/06/23 06:17 RDW Coeff of Zeyad 14.3 % (11.5-14.5) 02/06/23 06:17 Plt Count 207 K/uL (130-400) 02/06/23 06:17 MPV 9.8 fL (9.4-12.4) 02/06/23 06:17 Immature Gran % (Auto) 0.3 % 02/05/23 07:42 Neut % (Auto) 61.6 % 02/05/23 07:42 Lymph % (Auto) 23.7 % 02/05/23 07:42 [place] % (Auto) 11.3 % 02/05/23 07:42 Eos % (Auto) 2.6 % 02/05/23 07:42 Baso % (Auto) 0.5 % 02/05/23 07:42 Reticulocyte % (Auto) 1.4 % (0.5-2.0) 02/05/23 07:42 Neut # (Auto) 2.39 K/uL (1.40-6.50) 02/05/23 07:42 Lymph # (Auto) 0.92 K/uL (1.20-3.40) L 02/05/23 07:42 [place] # (Auto) 0.44 K/uL (0.11-0.59) 02/05/23 07:42 Eos # (Auto) 0.10 K/uL (0.00-0.50) 02/05/23 07:42 Baso # (Auto) 0.02 K/uL (0.00-0.20) 02/05/23 07:42 Reticulocyte # 0.06 10^6/uL (0.02-0.10) 02/05/23 07:42 Immature Gran # (Auto) 0.01 K/uL (0.01-0.20) 02/05/23 07:42 Peripher Smr Path Cons 02/05/23 07:42 Sodium 136 mmol/L (136-145) 02/06/23 06:17 Potassium 3.9 mmol/L (3.5-5.1) 02/06/23 06:17 Chloride 106 mmol/L (98-107) 02/06/23 06:17 Carbon Dioxide 25 mmol/L (21-32) 02/06/23 06:17 Anion Gap 5 (3-11) 02/06/23 06:17 BUN 16 mg/dl (6-23) 02/06/23 06:17 Creatinine 0.91 mg/dl (0.6-1.4) 02/06/23 06:17 Est Cr Clr Drug Dosing 85.2 ml/min 02/06/23 06:17 Est GFR ( Amer) 102.1 ml/min 02/06/23 06:17 Est GFR (Non-Af Amer) 88.1 ml/min 02/06/23 06:17 BUN/Creatinine Ratio 17.6 (10-20) 02/06/23 06:17 Glucose 80 mg/dl (70-99(Fasting)) 02/06/23 06:17 Lactate 0.8 mmol/L (0.4-2.0) 02/04/23 23:47 Calcium 8.8 mg/dl (8.6-10.3) 02/06/23 06:17 Magnesium 1.7 mg/dl (1.7-2.4) 02/06/23 06:17 Iron 27 mcg/dl (35-175) L 02/05/23 07:42 Transferrin 195 mg/dl (200-360) L 02/05/23 07:42 Ferritin 60.2 ng/ml (8-388) 02/05/23 07:42 Total Bilirubin 0.4 mg/dl (0.2-1.0) 02/04/23 23:10 Direct Bilirubin 0.1 mg/dl (0-0.2) 02/04/23 23:10 AST 31 U/L (13-39) 02/04/23 23:10 ALT 18 U/L (7-52) 02/04/23 23:10 Alkaline Phosphatase 46 U/L (34-104) 02/04/23 23:10 Troponin I High Sens 8.1 pg/ml (0-20) 02/04/23 23:10 Total Protein 6.6 gm/dl (6.0-8.3) 02/04/23 23:10 Albumin 3.8 gm/dl (3.4-5.0) 02/04/23 23:10 Vitamin B12 865 pg/ml (180-914) 02/05/23 07:42 Folate > 22.30 ng/ml (>5.38) 02/05/23 07:42 Procalcitonin < 0.05 ng/ml (0-0.5) 02/04/23 23:10 TSH 4.266 uIu/ml (0.300-4.500) 02/04/23 23:10 Urine Color Dark Yellow 02/04/23 23:10 Urine Appearance Clear (Clear) 02/04/23 23:10 Urine pH 5.5 (4.5-7.5) 02/04/23 23:10 Ur Specific [place] 1.025 (1.000-1.030) 02/04/23 23:10 Urine Protein Negative (Negative) 02/04/23 23:10 Urine Glucose (UA) Negative (Negative) 02/04/23 23:10 Urine Ketones Trace (Negative) H 02/04/23 23:10 Urine Blood Negative (Negative) 02/04/23 23:10 Urine Nitrite Negative (Negative) 02/04/23 23:10 Urine Bilirubin Negative (Negative) 02/04/23 23:10 Urine Urobilinogen Negative (Negative) 02/04/23 23:10 Ur Leukocyte Esterase Negative (Negative) 02/04/23 23:10 Ethyl Alcohol mg/dL < 10.0 mg/dl (<10.0) 02/04/23 23:47 Lyme Disease IgG Ab Negative (Negative) 02/04/23 23:10 Lyme Disease IgM Ab Negative (Negative) 02/04/23 23:10 Impressions Chest X-Ray 02/04/23 23:24 XR chest 1V portable CLINICAL HISTORY: Sepsis COMPARISON STUDY: No previous studies for comparison. FINDINGS: Incidental note is made of an old healed left clavicular fracture. Patient is rotated. There is no pneumothorax or pleural effusion. Note is made of mild cardiomegaly without evidence for pulmonary edema. No consolidation is identified to suggest pneumonia. IMPRESSION: No acute cardiopulmonary findings. ACT 112: Negative or not required by law. Electronically signed by: Ian Harris M.D. 02/05/2023 6:[address] 02/05/23 04:02 CT OF THE HEAD WITHOUT CONTRAST CLINICAL HISTORY: Altered mental status. COMPARISON STUDY: No previous studies for comparison. CT DOSE: 1406.31 mGy.cm TECHNIQUE: Helical axial images of the head were obtained without IV contrast. Automated exposure control was utilized for the study. A dose lowering technique was utilized adhering to the principles of ALARA. FINDINGS: No acute intracranial hemorrhage, midline shift or mass effect is present. The ventricular system is unremarkable. The basal cisterns are patent. No extra-axial collections are present. There are no findings to suggest acute dural sinus thrombosis or acute territorial infarct. No significant calvarial abnormalities are present. Visualized portions of the sinuses and mastoid air cells are clear. IMPRESSION: No acute intracranial findings. ACT 112: Negative or not required by law. Electronically signed by: Ian Harris M.D. 02/05/2023 6:28 AM Ordered Studies 02/05/23 04:02 CT head/brain wo con Stat Hospital Course (1) Acute alteration in mental status: Altered mental status/restlessness ? Polypharmacy -CT head:No acute intracranial findings. H/O Mood disorder, dementia/dyslexia/moderate mental retardation as per records. --Unknown baseline -Normal TSH, B12 Lamictal level--pending Continue to hold trazodone, Seroquel for now Psychiatry consulted, Appreciate input Continue Lamictal, lorazepam Discussed with Dr. Gotti on 02/06/23: Recommends to continue to hold trazodone, Seroquel, Zoloft until follow-up with patient's primary psychiatrist as outpatient Plan to discharge back to skilled nursing today Fever Dehydration No clear source of infection --CXR:No acute cardiopulmonary findings. --UA: not suggestive of UTI -- Blood cultures: No growth to date Will consider starting empiric antibiotics if needed Received gentle IV fluids Anemia, leukopenia Unknown baseline, FOBT done in ED was negative No acute bleeding issues Serum iron, transferrin low Normal B12, folate levels Started on iron supplements Monitor Hypertension Continue Coreg, losartan Also on tamsulosin Hyperlipidemia Continue statin Hypothyroidism Normal TSH Continue levothyroxine DVT Px: Lovenox SQ Code Status Full code Maintenance Worker House Trailer: Ms. Reyna Zheng (caregiver), contact #[phone]. Mr. Simone Richmond (brother), contact #[phone]. Disposition half-way Total Time Total Time Spent Total Time Spent (In Minutes): 57 minutes Discharge Plan Discharge Items Patient Disposition: Personal [facility] Reason For Visit: AMS Discharge Diagnosis: Altered mental status/restlessness Suspected likely secondary to polypharmacy Iron deficiency anemia Activity: Per Instructions section Exercise/Sports: Wait until after follow-up appointment Non-emergency contact: Primary Care Provider and Psychiatrist Call non-emergency contact if: you have any medication questions, your symptoms worsen, your pain is concerning for you and you have a fever Follow-up/Referrals: Frances Flood PA-C [Primary Care Provider] - Diet: Heart Healthy Diet Texture: Easy to Chew Addtl Attending Provider Instructions: Follow-up with your primary care physician Frances Flood PA-C IN 1 week Follow-up with your psychiatrist in 1 week --Hold taking trazodone, Seroquel, Zoloft until follow-up with your psychiatrist in 1 week. Further recommendations as per your psychiatrist. --Your blood culture results and Lamictal levels are pending at the time of the pending. Follow-up with your physician for results. Seek immediate medical attention if your symptoms reoccur or worsen Please take all medications as instructed on discharge list below. Please call if you have any questions or problems. You can reach a [facility] hospitalist on duty at [facility] 24 hours a day by calling [phone] Pending Studies at Discharge: Yes Studies:: Blood cultures, Lamictal levels Stand-Alone Forms: My [facility] Match, Smoking Cessation Skilled Items Patient informed of condition?: Yes DNR: No Discharge Level of Care: Other Communicable Disease: No Discharge Prognosis: Stable Lines: None Urinary Catheter: No Medications and DC Order Prescriptions: New melatonin 3 mg Tablet 3 mg PO HS PRN (Reason: sleep) Qty: 30 0RF Continued aspirin [Aspirin Low-Strength] 81 mg Tablet,Chewable 81 mg PO DAILY atorvastatin 40 mg Tablet 40 mg PO DAILY carvedilol 6.25 mg Tablet 6.25 mg PO BID Rx Instructions: must administer with a meal/food famotidine 20 mg tablet 40 mg DAILY Citrucel 500 mg Tablet 500 mg PO BID lamotrigine 200 mg tablet 200 mg BID ketoconazole 2 % shampoo 2 applic TOPICAL 2XWK lorazepam 0.5 mg tablet 0.5 mg DAILY terazosin 2 mg capsule 2 mg HS levothyroxine 50 mcg tablet 50 mcg DAILY ascorbic acid (vitamin C) [Vitamin C] 500 mg tablet,chewable 500 mg PO DAILY losartan 100 mg tablet 100 mg DAILY Held sertraline 100 mg tablet 200 mg DAILY Hold Instructions: Until follow-up with your psychiatrist in 1 week quetiapine 100 mg tablet 100 mg HS Hold Instructions: Until follow-up with your psychiatrist in 1 week trazodone 150 mg tablet 150 mg HS Hold Instructions: Until follow-up with your psychiatrist in 1 week quetiapine 50 mg tablet 50 mg DAILY Hold Instructions: Until follow-up with your psychiatrist in 1 week Discharge Orders: Discharge Order (Routine); Ordered 02/06/23 Ordered By: Mj Perez Admission Data Admit Date/Time: 02/05/23 04:04 Attending Provider: Mj Perez Admit Provider: Gianni Corbett Primary Care Provider: Frances Flood Other Providers: Gianni Corbett ; Amy Gotti ; Melody Hollis ; Chepe Mix
== END 2023-02-06 15:40 | disposition home or self-care (01) ==
LOC: ED 22:47 → EDINP 22:47 → SUATTDRO 02-05 04:04 → 2N 02-05 08:00